=== PATIENT | female | born 1960 | race Caucasian/White ===

== ENCOUNTER 2019-11-14 18:05 | Emergency (ER) | payer BC ==
[2019-11-14 18:49] VITALS: BP 153/75
--- NOTE | 2019-11-14 19:33 | UC ---
HPI Febrile Illness - HPI Summary HPI Summary: 5-year-old female presenting with "fever on and off." 4 days. Patient also notes a frontal headache that is not improved with Tylenol. Denies neck pain out of the ordinary since her surgery. Patient states fever highest of 102 intermittently. Denies URI symptoms. Denies cough. Denies nausea and vomiting. Denies abdominal pain. Denies urinary symptoms. Patient states she is status post cervical neck implant on 10/23/2019. Denies increased pain, tenderness, or drainage from incision site. States she called her surgeon who stated "your incision site is fine, follow up with your primary care provider." Patient then adds she "just wants a CBC to make sure her white blood cells are ok." - History of Current Complaint Chief Complaint: UCGeneralIllness Hx Obtained From: Patient Pain Intensity: 9 Pain Scale Used: 0-10 Numeric - Allergy/Home Medications Allergies/Adverse Reactions: Allergies Allergy/AdvReac Type Severity Reaction Status Date / Time No Known Allergies Allergy Verified 11/14/19 18:50 Home Medications: Home Medications Acetaminophen [Acetaminophen Extra Strength] 1,000 mg PO DAILY 11/14/19 [ History Confirmed 11/14/19] Cyclobenzaprine TAB* [Flexeril 10 MG TAB*] 10 mg PO DAILY 11/14/19 [History Confirmed 11/14/19] Levothyroxine TAB* [Synthroid TAB*] 75 mcg PO DAILY 11/14/19 [History Confirmed 11/14/19] Simvastatin 20 mg PO DAILY 11/14/19 [History Confirmed 11/14/19] Venlafaxine HCl [Effexor Xr] 37.5 mg PO DAILY 11/14/19 [History Confirmed ] oxyCODONE TAB* [Roxycodone TAB 5 mg*] 5 mg PO BID 11/14/19 [History Confirmed ] PMH/Surg Hx/FS Hx/Imm Hx Endocrine History: Hypothyroidism, Dyslipidemia - Surgical History Surgical History: Yes Surgery Procedure, Year, and Place: 10/23/19 cervical neck implant at. [facility]. TRIGGER FINGER RELEASE 2010. RT CARPAL TUNNEL. PARTIAL HYSTERECTOMY - Family History Known Family History: Positive: Non-Contributory - Social History Alcohol Use: None Substance Use Type: None Smoking Status (MU): Never Smoked Tobacco Review of Systems All Other Systems Reviewed And Are Negative: Yes Constitutional: Positive: Fever. Negative: Chills, Fatigue ENT: Positive: Negative Respiratory: Positive: Negative Cardiovascular: Positive: Negative Gastrointestinal: Positive: Negative Genitourinary: Positive: Negative Musculoskeletal: Positive: Negative Neurological/Mental Status: Positive: Headache Physical Exam - Summary Physical Exam Summary: Vital Signs Reviewed: Yes A+Ox3, no distress, well-appearing Eyes: Conjunctiva Clear ENT: Hearing grossly normal, TM x 2 clear, moist, uvula midline, no exudate, no erythema Neck: Positive: Supple Respiratory: Positive: No respiratory distress, No accessory muscle use + CTA throughout no w/r Cardiovascular: tachycardia, regular rhythm nl s1, s2 no m/r Musculoskeletal Exam: GUAMAN x 4 without difficulty Neurological: Positive: Alert, negative brudzinski and kernig Psychological: Positive: age appropriate behavior Skin: Positive: no rash, no ecchymosis, ~3-4 inch healing vertical incision noted on anterior neck without drainage, fluctuance, or surrounding erythema Vital Signs: Initial Vital Signs Temp 100.6 F 11/14/19 18:43 Pulse 120 11/14/19 18:43 Resp 20 11/14/19 18:43 BP 153/75 11/14/19 18:43 Pulse Ox 99 11/14/19 18:43 Course/Dx - Course Course Of Treatment: UA positive for leuks, blood, and nitrites. I informed the patient that there is concern for pyelonephritis and that further lab work is necessary in the emergency room. Patient voiced understanding and agreed to have her drive her straight to [facility] upon leaving the clinic. Patient stable and in no distress upon departure. Discussed patient with Dr. Schmitz who also agreed with plan. Dr. Schmitz called [place] [facility] and spoke with Dr. De La O to give report on the patient. - Febrile Illness Differential Diagnoses: Meningitis, Pyelonephritis, Sepsis - Diagnoses Provider Diagnosis: Fever, Abnormal urinalysis Discharge ED - Sign-Out/Discharge Documenting (check all that apply): Patient Departure All imaging exams completed and their final reports reviewed: No Studies - Discharge Plan Condition: Stable Disposition: HOME-RECOMMEND TO ED Referrals: Nicolas Costa MD [Primary Care Provider] - Additional Instructions: The provider that evaluated you today thinks that you need additional testing that can be completed the emergency department. It is recommended that you go directly to emergency department for further evaluation. This evaluation included blood work or imaging. This testing will be directed and decided by the provider that evaluates you at the emergency department. If pain becomes worse, you feel lightheaded, you have uncontrolled vomiting, or you have any other concerns while you are being driven to emergency department it is recommended to pullover and contact 911. - Billing Disposition and Condition Condition: STABLE Disposition: Home-Recommend to ED - Attestation Statements Provider Attestation: This patient was not seen by me. I was available for consult. Chart reviewed. MIAH
== END 2019-11-14 19:31 | disposition home health service (06) ==
LOC: UCCORT 18:05
DX: R50.9 Fever, unspecified (principal); R82.998 Other abnormal findings in urine; E03.9 Hypothyroidism, unspecified; Z79.890 Hormone replacement therapy; E78.5 Hyperlipidemia, unspecified; Z79.899 Other long term (current) drug therapy; R51 Headache
CPT/HCPCS: 81003; 99202; G0463